=== PATIENT | female | born 2000 | race Caucasian/White ===

== ENCOUNTER 2025-05-11 13:25 | Emergency (ER) | payer OTHER, SELFPAY ==
[2025-05-11 13:27] VITALS: BP 152/91
[2025-05-11 14:01] LABS: Urine Character Clear (Clear)
[2025-05-11 14:16] LABS: HCG, Urine Qualitative Screen Negative
--- NOTE | 2025-05-11 14:39 | ED.GENMED ---
History of Present Illness
General
Chief Complaint: Abdominal Pain
Time Seen by Provider: 05/11/25 13:42
History of Present Illness
History of Present Illness:
25-year-old female without significant past medical history presenting to the emergency department for lower pelvic pain. Patient notes that she has been having intermittent lower pelvic pain in the past few weeks, however felt that it was more
persistent over the weekend. Reports that she went on a long run on Sunday, 2 days ago and has since had lower pelvic pain. She had a similar symptoms last week after a long run so was not sure if it was related. Denies any abnormal discharge.
She just finished with her menstrual cycle. Denies any urinary complaints. Denies fever. Denies any abdominal surgeries in the past. Denies upper abdominal pain. Denies chest pain or difficulty breathing. Denies vomiting or changes in stool.
Denies known history of ovarian cysts. Denies additional acute medical complaints
Past History
Past History
ED Past Medical History: Other ( 2 para 1)
Social History
Tobacco: Non-smoker
Alcohol: None
Family History
Family History: Negative Diabetes, Hypertension or CAD
Phy Exam
Physical Exam
Physical Exam:
General: Well-appearing, no clinical signs of dehydration, nontoxic and in no acute distress
HEENT: protecting airway
Neck: appears supple
CV: Normal heart rate, regular rhythm, no evidence of cyanosis
Resp: No accessory muscle use, no increased work of breathing, lungs clear to auscultation bilaterally
Abd: Soft and non-distended, mild tenderness to the lower pelvic region without rebound or guarding. No lateralizing tenderness
Extremities: No deformities, no swelling
Neuro: alert, no focal neurologic deficit
: deferred
Rectal: deferred
Psych: Normal affect
Skin: Intact
Course
Orders/Labs/Results
Orders:
Orders
05/11/25 13:31
Test Result ONCE
05/11/25 13:36
HCG, Urine Qualitative Screen Urgent
Date Specimen was Collected: 05/11/25
Time Specimen was Collected: 13:31
Urinalysis Reflex To Culture Urgent
Date Specimen was Collected: 05/11/25
Time Specimen was Collected: 13:31
05/11/25 14:13
US Pelvis Only (non-obstetric) Urgent
Reason For Exam: lower pelvic pain
05/11/25 14:28
CBC/With Diff [Complete Blood Count/With Diff] Urgent
Comprehensive Metabolic Panel Urgent
05/11/25 14:28
05/11/25 14:28
Vital Signs
Initial and Last Documented VS:
Initial Vital Signs
Temp Pulse Resp BP Pulse Ox
97.4 F 78 20 152/91 99
05/11/25 13:27 05/11/25 13:27 05/11/25 13:27 05/11/25 13:27 05/11/25 13:27
Last Documented Vital Signs
Temp Pulse Resp BP Pulse Ox
97.4 F 77 16 137/84 99
05/11/25 13:27 05/11/25 15:57 05/11/25 15:57 05/11/25 15:57 05/11/25 15:57
MDM/Problems Addressed
MDM/Problems Addressed:
25-year-old female presenting to the emergency department for lower pelvic pain. Vital signs on arrival are significant for mild hypertension.
On exam patient is resting comfortably, no acute distress or discomfort. Denies any significant active pain. Has some discomfort with palpation. Reports that the pain is particularly prominent after long jogging episodes. Possible pelvic floor
strain or dysfunction, does note that she has had 3 children in the past. No significant lateralizing pain with lower suspicion for torsion. Denies urinary complaints without significant concern for UTI. Just had her menstrual period so lower
suspicion for . Plan for urinalysis, laboratory analysis, ultrasound imaging for further assessment
16:10 - Patient's labs and urine are unremarkable. Ultrasound without acute abnormality. Suspect possible pelvic floor dysfunction, given that pain is worsened after long running. Ultimately feel stable for discharge, however with interval
follow-up with gynecology. Return precautions discussed and patient verbalized understanding
*Pulse Oximetry
SaO2: 99
Oxygen Mode of Delivery: Room air
Patient hypoxic: no
*Critical Care Note
Total Time (30-74mins, 75-104mins- exclusive of procedures): Not Applicable
ED Attending Note
-
Portions of this chart may have been created with voice recognition software.� Occasional wrong word or��sound alike� substitutions may have occurred due to the inherent limitations of voice recognition software.
Discharge Plan
Departure
Prescriptions:
No Action
vit 96-iron fum-folic 1 EACH tablet
1 ea PO DAILY
acetaminophen 325 mg Tablet
650 mg PO Q4HPRN PRN (Reason: mild pain) Qty: 20 0RF
ibuprofen 600 mg Tablet
600 mg PO Q6HPRN PRN (Reason: moderate pain/cramps) Qty: 20 0RF
Referrals:
Lion Ty MD [Family Provider, Ophthalmology]
Interventions
Interventions:
*General Assessment Last Done: 05/11/25 13:27
VM-Ufifis-Gybappuqfp Assessment Last Done: 05/11/25 13:38
Discharge Date and Time
Print Language: QATARI
[2025-05-11 14:40] LABS: Hematocrit 43.8 % (37.0-47.0); Hemoglobin 14.7 g/dL (12.0-16.0); Mean Corp Hgb Conc. 33.6 g/dL (33.0-37.0); Mean Corpuscular Volume 88.1 fL (81.0-99.0); Nucleated Red Blood Cells % 0 %; Platelet Count 209 10^3/uL (130-400); Red Cell Dist. Width 12.5 % (11.5-14.5)
[2025-05-11 14:54] LABS: ALT (SGPT) 29 U/L (0-35); AST (SGOT) 32 U/L (14-36); Albumin 4.9 g/dl (3.5-5.0); Alkaline Phosphatase 84 U/L (38-126); Blood Urea Nitrogen 8 mg/dl (7-17); Calcium 9.9 mg/dl (8.4-10.2); Carbon Dioxide 27 mmol/L (22-30); Chloride 106 mmol/L (98-107); Glucose 94 mg/dl (70-99); Potassium 4.0 mmol/L (3.5-5.1); Sodium 140 mmol/L (135-145); Total Protein 7.8 g/dl (6.3-8.2); eGFR > 60.00
[2025-05-11 15:57] VITALS: BP 137/84
== END 2025-05-11 16:33 | disposition home or self-care (01) ==
LOC: EMR 13:25
PROVIDERS: Emergency Medicine; EMERGENCY PHYSICIAN Student in an Organized Health Care Education/Training Program; FAMILY PHYSICIAN Ophthalmology
DX: R10.2 Pelvic and perineal pain (principal)
CPT/HCPCS: 99284; 76856; 80053; 81003; 81025; 85025